=== PATIENT | male | born 1950 | race Caucasian/White ===

== ENCOUNTER 2020-10-13 17:30 | Emergency (ER) | payer MEDICAID, MEDICARE, OTHER ==
[~2020-10-13] VITALS: Ht 180.3 cm; Wt 63.6 kg
[2020-10-13 18:09] LABS: BASOPHILS % (AUTO) 0 % (0-1); EOSINOPHILS % (AUTO) 2 % (1-7); LYMPHOCYTES % (AUTO) 16 % (22-44); MEAN CORPUSCULAR HEMOGLOBIN 29.9 pg (27.5-34.5); MEAN PLATELET VOLUME 9.1 fL (7.4-10.4); MONOCYTES % (AUTO) 7 % (2-9); NEUTROPHILS % (AUTO) 75 % (42-75); PLATELET COUNT 213 x10^3/uL (130-400); RED BLOOD COUNT 5.88 x10^6/uL (4.38-5.82); RED CELL DISTRIBUTION WIDTH 14.5 % (9.4-14.8)
[2020-10-13 18:22] LABS: ALANINE AMINOTRANSFERASE 30 U/L (12-78); ALBUMIN 3.3 g/dL (3.4-5.0); ANION GAP 7 mmol/L (5-15); CALCIUM 9.4 mg/dL (8.5-10.1); CHLORIDE 107 mmol/L (98-107); CREATININE 1.09 mg/dL (0.7-1.3)
[2020-10-13 18:24] LABS: ALKALINE PHOSPHATASE 114 U/L (45-117); BILIRUBIN,TOTAL 1.3 mg/dL (0.2-1.0); TOTAL PROTEIN 7.5 g/dL (6.4-8.2)
[2020-10-13] MEDS ORDERED: SODIUM CHLORIDE 0.9% 1,000ML IVBOLUS ONE (18:30)
--- NOTE | 2020-10-13 18:52 | NUR ---
PT TO IMAGING VIA [employer].
[2020-10-13] MEDS ORDERED: ONDANSETRON ODT 4 MG PO ONE (19:00)
[2020-10-13] MEDS: POTASSIUM CHLORIDE 20 MEQ PACKET PO ONE ×2 (19:00→19:46)
[2020-10-13] MEDS ORDERED: ONDANSETRON ODT 4 MG ONE (19:43)
[2020-10-13] MEDS ORDERED: POTASSIUM CHLORIDE 20 MEQ PACKET ONE (19:43)
--- NOTE | 2020-10-13 19:46 | NUR ---
PT UNABLE TO TOLERATE PO POTASSIUM. ERP NOTIFIED, NO NEW ORDER.
[2020-10-13 19:49] VITALS: BP 102/73
[2020-10-13] MEDS ORDERED: METOCLOPRAMIDE 5 MG/ML, 2ML IVPush ONE (20:00)
[2020-10-13] MEDS ORDERED: METOCLOPRAMIDE 5 MG/ML, 2ML ONE ×2 (20:01→20:52)
--- NOTE | 2020-10-13 20:40 | NUR ---
ERP WAS IN FOR RECHECK. PT NAUSEOUS AFTER WATER, WILL MEDICATE WITH REGLAN PER ORDERS.
--- NOTE | 2020-10-13 21:00 | NUR ---
PT TO BE TRANSPORTED HOME VIA [facility] D/T [facility]. PT STATES HE LIVES WITH HIS GRANDSON AT HOME BUT HIS GRANDSON IS UNABLE TO PICK HIM UP.
--- NOTE | 2020-10-13 23:09 | NUR ---
D/C INSTRUCTIONS, MEDS & F/U APPT RV'WD WITH PT, HE VERBALIZES UNDERSTANDING. RX GIVEN X2. PT TRANSPORTED HOME VIA GURNEY WITH [facility].
== END 2020-10-13 23:07 | disposition home or self-care (01) ==
LOC: ED 19:25
DX: R11.2 Nausea with vomiting, unspecified (principal); E87.6 Hypokalemia
CPT/HCPCS: 36415; 74022; 80053; 83605; 83690; 85025; 96361; 96374; 99284; J2765; J7030; Q0162